=== PATIENT | male | born 1955 | race Caucasian/White ===

== ENCOUNTER 2023-03-06 21:27 | Inpatient (IN) | payer OTHER ==
[~2023-03-06] VITALS: Ht 193 cm; Wt 101.2 kg
[~2023-03-06 21:27] MED LIST: ASPIRIN EC81 MG PO; ATIVAN0.5 MG PO; BUSPIRONE HCL10 MG PO; DEXAMETHASONE4 MG PO; LOSARTAN POTASS25 MG PO; MULTI-VITAMIN1 EACH PO; PROTONIX20 MG PO; RITALIN10 MG PO; SIMVASTATIN20 MG PO
[2023-03-06] MEDS ORDERED: CEFEPIME 2 GM in SODIUM CHLORIDE 0.9% 100 ML IV ONE (22:15)
[2023-03-06] MEDS ORDERED: Vancomycin IV 2 GM in SODIUM CHLORIDE 0.9% 500ML 500 ML IV ONE (22:15)
[2023-03-06] MEDS ORDERED: SODIUM CHLORIDE 0.9% IV ONE (22:45)
[2023-03-06] MEDS ORDERED: VANCOMYCIN IV ONE (22:45)
[2023-03-06] MEDS ORDERED: SODIUM CHLORIDE 0.9% 1000ML 1,000 ML IV SCH (23:00)
[2023-03-07] VITALS (11 sets, daily range): BP systolic 115–141; BP diastolic 72–93; PULSE 77–86; RESP 17–29; TEMP 100.1–101.2; O2SAT 95–96
[2023-03-07] MEDS ORDERED: ONDANSETRON HCL INJ 2MG/ML 2ML 2 MG/ML VIAL IV PRN
[2023-03-07] MEDS ORDERED: KETOROLAC TROMETHAMINE 30 MG/ML VIAL IV PRN
[2023-03-07] MEDS ORDERED: SODIUM CHLORIDE FLUSH 10 ML SYR INJ PRN
[2023-03-07 04:53] LABS: BASOPHILS % 0.3 % (0.0-1.0); EOSINOPHILS # (AUTO) 0.1 (0.0-0.4); EOSINOPHILS % 0.9 % (0.0-6.0); HEMATOCRIT 37.1 % (38.2-49.6); HEMOGLOBIN 13.5 g/dL (14.0-18.0); MEAN CORPUSCULAR HEMOGLOBIN 30.2 pg (28-32); MEAN CORPUSCULAR HGB CONC 36.4 g/dL (31-35); MONOCYTES # (AUTO) 1.1 (0.2-0.8); MONOCYTES % 11.2 % (4.4-11.3); NEUTROPHILS # (AUTO) 6.6 (2.1-6.9); NEUTROPHILS % 67.3 % (38.7-80.0); PLATELET COUNT 122 x10e3/uL (140-360); RED BLOOD COUNT 4.47 x10e6/uL (4.3-5.7); RED CELL DISTRIBUTION WIDTH 13.4 % (11.7-14.4); WHITE BLOOD COUNT 9.74 x10e3/uL (4.8-10.8)
[2023-03-07 05:07] LABS: ALBUMIN 3.3 g/dL (3.5-5.0); ALBUMIN/GLOBULIN RATIO 1.3 (0.8-2.0); ANION GAP 13.5 mmol/L (8-16); CREATININE, SERUM 0.74 mg/dL (0.72-1.25); POTASSIUM 3.5 mmol/L (3.5-5.1)
[2023-03-07 05:13] LABS: CALCIUM 8.2 mg/dL (8.4-10.2)
[2023-03-07] MEDS: CEFEPIME 2 GM in SODIUM CHLORIDE 0.9% 100 ML IV SCH ×3 (05:35→20:39)
[2023-03-07] MEDS: ACETAMINOPHEN 325 MG TAB PO PRN (20:38)
[2023-03-07] MEDS: SIMVASTATIN 20 MG TAB PO SCH (20:39)
[2023-03-08] VITALS (9 sets, daily range): BP systolic 106–146; BP diastolic 75–95; PULSE 63–76; RESP 12–20; TEMP 98–99.1; O2SAT 95–100
[2023-03-08] MEDS: ACETAMINOPHEN 325 MG TAB PO PRN ×2 (04:01→22:51)
[2023-03-08] MEDS: CEFEPIME 2 GM in SODIUM CHLORIDE 0.9% 100 ML IV SCH ×2 (05:08→13:21)
[2023-03-08] MEDS: BUSPIRONE HCL 10 MG TABLET PO SCH ×2 (08:32→16:46)
[2023-03-08] MEDS: LOSARTAN POTASSIUM 25 MG TAB PO SCH (08:32)
[2023-03-08] MEDS: PANTOPRAZOLE SOD 40 MG TABEC PO SCH (08:32)
[2023-03-08] MEDS: METHYLPHENIDATE HCL 10 MG TAB PO SCH ×2 (08:32→16:46)
[2023-03-08] MEDS: LORAZEPAM 0.5 MG TAB PO SCH ×2 (08:33→16:46)
[2023-03-08] MEDS: MULTIVITAMINS/MINERALS TAB PO SCH (08:33)
[2023-03-08] MEDS: ASPIRIN 81 MG ENTERIC COATED PO SCH (08:33)
[2023-03-08] MEDS: Doxycycline IV 100 MG in SODIUM CHLORIDE 0.9% 100 ML IV SCH (16:44)
[2023-03-08] MEDS: SIMVASTATIN 20 MG TAB PO SCH (20:43)
[2023-03-09] VITALS (7 sets, daily range): BP systolic 125–135; BP diastolic 73–90; PULSE 65–74; RESP 15–20; TEMP 97.3–98.4; O2SAT 96–100
[2023-03-09] MEDS: Doxycycline IV 100 MG in SODIUM CHLORIDE 0.9% 100 ML IV SCH ×2 (04:50→16:41)
[2023-03-09] MEDS: ASPIRIN 81 MG ENTERIC COATED PO SCH (08:09)
[2023-03-09] MEDS: METHYLPHENIDATE HCL 10 MG TAB PO SCH ×2 (08:09→17:09)
[2023-03-09] MEDS: PANTOPRAZOLE SOD 40 MG TABEC PO SCH (08:09)
[2023-03-09] MEDS: MULTIVITAMINS/MINERALS TAB PO SCH (08:09)
[2023-03-09] MEDS: BUSPIRONE HCL 10 MG TABLET PO SCH ×2 (08:10→17:09)
[2023-03-09] MEDS: LOSARTAN POTASSIUM 25 MG TAB PO SCH (08:10)
[2023-03-09] MEDS: LORAZEPAM 0.5 MG TAB PO SCH ×2 (08:10→17:09)
[2023-03-09] MEDS: SIMVASTATIN 20 MG TAB PO SCH (20:25)
[2023-03-10] VITALS: BP 147/97; PULSE 65; RESP 18; TEMP 98.2; O2SAT 99
[2023-03-10 04:00] VITALS: BP 125/87; PULSE 62; RESP 20; TEMP 98.3; O2SAT 97
[2023-03-10] MEDS: Doxycycline IV 100 MG in SODIUM CHLORIDE 0.9% 100 ML IV SCH (04:34)
[2023-03-10 07:32] VITALS: BP 143/90; PULSE 67; RESP 18; TEMP 97.9; O2SAT 96
[2023-03-10 08:00] VITALS: BP 143/90; PULSE 67; RESP 18; TEMP 97.9; O2SAT 96
[2023-03-10] MEDS: MULTIVITAMINS/MINERALS TAB PO SCH (08:33)
[2023-03-10] MEDS: BUSPIRONE HCL 10 MG TABLET PO SCH (08:33)
[2023-03-10] MEDS: PANTOPRAZOLE SOD 40 MG TABEC PO SCH (08:34)
[2023-03-10] MEDS: LORAZEPAM 0.5 MG TAB PO SCH (08:34)
[2023-03-10] MEDS: METHYLPHENIDATE HCL 10 MG TAB PO SCH (08:34)
[2023-03-10] MEDS: ASPIRIN 81 MG ENTERIC COATED PO SCH (08:34)
[2023-03-10] MEDS: LOSARTAN POTASSIUM 25 MG TAB PO SCH (08:34)
[2023-03-10] MEDS ORDERED: ONDANSETRON HCL 4 MG ORAL DISINTEGRATING TAB PO PRN (09:00)
[2023-03-10 09:57] LABS: BASOPHILS # (AUTO) 0.1 (0.0-0.1); BASOPHILS % 0.8 % (0.0-1.0); EOSINOPHILS # (AUTO) 0.2 (0.0-0.4); HEMATOCRIT 38.4 % (38.2-49.6); HEMOGLOBIN 13.8 g/dL (14.0-18.0); LYMPHOCYTES # (AUTO) 1.6 (1.0-3.2); LYMPHOCYTES % 24.4 % (18.0-39.1); MEAN CORPUSCULAR HEMOGLOBIN 30.1 pg (28-32); MEAN CORPUSCULAR HGB CONC 35.9 g/dL (31-35); MEAN CORPUSCULAR VOLUME 83.7 fL (81-99); MONOCYTES # (AUTO) 0.5 (0.2-0.8); MONOCYTES % 7.6 % (4.4-11.3); NEUTROPHILS # (AUTO) 4.2 (2.1-6.9); NEUTROPHILS % 63.7 % (38.7-80.0); PLATELET COUNT 204 x10e3/uL (140-360); RED BLOOD COUNT 4.59 x10e6/uL (4.3-5.7); RED CELL DISTRIBUTION WIDTH 13.2 % (11.7-14.4); WHITE BLOOD COUNT 6.61 x10e3/uL (4.8-10.8)
[2023-03-10 10:19] LABS: ANION GAP 11.8 mmol/L (8-16); CALCIUM 9.4 mg/dL (8.4-10.2); CREATININE, SERUM 0.76 mg/dL (0.72-1.25); PHOSPHORUS 2.8 MG/DL (2.3-4.7); POTASSIUM 3.8 mmol/L (3.5-5.1)
[2023-03-10 11:50] VITALS: BP 126/81; PULSE 63; RESP 18; TEMP 98.1; O2SAT 97
[2023-03-10] MEDS ORDERED: ACETAMINOPHEN325 M1 PO (11:50)
[2023-03-10] MEDS ORDERED: ONDANSETRON ODT4 MG PO (11:50)
[2023-03-10] MEDS ORDERED: DOXYCYCLINE HY100 M3 PO (14:00)
[2023-03-10] MEDS ORDERED: MEDROL4 M2 PO (14:00)
[2023-03-10] MEDS ORDERED: DOXYCYCLINE HYCLATE TABLET 100 MG TAB PO SCH (16:00)
== END 2023-03-10 14:20 | disposition home or self-care (01) | DRG 603 ==
LOC: FSED 21:35 → ERHOLD 03-07 00:01 → ICU 03-07 06:38 → MED/SURG3 03-07 13:10
PROVIDERS: ADMIT Internal Medicine; ATTEND Internal Medicine
PROC: 3E03329 Introduction of Other Anti-infective into Peripheral Vein, Percutaneous Approach (ICD-10-PCS; 2023-03-07)
PROC: 0HBMXZZ Excision of Right Foot Skin, External Approach (ICD-10-PCS; principal; 2023-03-08)
PROC: 0HCMXZZ Extirpation of Matter from Right Foot Skin, External Approach (ICD-10-PCS; 2023-03-08)
DX: L03.115 Cellulitis of right lower limb (principal); L57.0 Actinic keratosis; M60.271 Foreign body granuloma of soft tissue, not elsewhere classified, right ankle and foot; Z18.81 Retained glass fragments; I10 Essential (primary) hypertension; E78.5 Hyperlipidemia, unspecified; L84 Corns and callosities; F90.9 Attention-deficit hyperactivity disorder, unspecified type; F41.9 Anxiety disorder, unspecified; F32.A Depression, unspecified; Z87.440 Personal history of urinary (tract) infections; Z79.82 Long term (current) use of aspirin; Z79.899 Other long term (current) drug therapy
CPT/HCPCS: 0223U; 36415; 76882; 80048; 80053; 81003; 83735; 84100; 85025; 86611; 87040; 99252; 99284; J0692; J2543; J7050